=== PATIENT | female | born 1965 | race Caucasian/White ===

== ENCOUNTER → 2016-06-10 | Outpatient (CLI) | payer OTHER | END | disposition home or self-care (01) | LOC: C.PAPS 15:38 | PROVIDERS: ATTEND Obstetrics & Gynecology | DX: D25.9 Leiomyoma of uterus, unspecified (principal); Z12.4 Encounter for screening for malignant neoplasm of cervix ==

== ENCOUNTER → 2016-09-22 | Outpatient (CLI) | payer OTHER | END | disposition home or self-care (01) | LOC: C.LABSPEC 17:38 | PROVIDERS: ATTEND Nurse Practitioner Adult Health | DX: N39.3 Stress incontinence (female) (male) (principal) ==

== ENCOUNTER → 2017-01-28 | Outpatient (CLI) | payer OTHER ==
--- NOTE | 2017-01-28 15:37 | MAMMOGRAPHY REPORT ---
BILATERAL DIGITAL SCREENING MAMMOGRAM TOMOSYNTHESIS WITH CAD: 01/28/2017 CLINICAL HISTORY: Routine screening. Patient has no complaints. TECHNIQUE: Breast tomosynthesis in addition to standard 2D mammography was performed. Current study was also evaluated with a Computer Aided Detection (CAD) system. COMPARISON: Comparison is made to exams dated: 01/27/2016 mammogram, 01/21/2015 mammogram, 08/15/2013 mammogram, 08/14/2012 mammogram, 04/30/2011 mammogram, and 04/29/2010 mammogram - [facility] enter. BREAST COMPOSITION: The tissue of both breasts is heterogeneously dense, which may obscure small mas ses. FINDINGS: No suspicious masses, calcifications, or areas of architectural distortion are noted in ei ther breast. There has been no significant interval change compared to prior exams. IMPRESSION: ACR BI-RADS CATEGORY 1: NEGATIVE There is no mammographic evidence of malignancy. A 1 year screening mammogram is recommended. Given the strong family history of breast cancer, consider annual screening bilateral breast MRI in additio n to annual mammography, if the patient's lifetime risk is greater than 20%. The patient will receive written notification of the results. Approximately 10% of breast cancers are not detected with mammography. A negative mammographic report should not delay biopsy if a clinically suggestive mass is present. Frannie Morelos M.D. /:01/28/2017 08:00:16 Workers Compensation Claims Assistant: Ruth ROE)(Patti)(BD), [facility] letter sent: Normal 1/2 BI-RADS Code: ACR BI-RADS Category 1: Negative
== END | disposition home or self-care (01) ==
LOC: C.MAMM 07:38
PROVIDERS: ATTEND Obstetrics & Gynecology
DX: Z12.31 Encounter for screening mammogram for malignant neoplasm of breast (principal); Z80.3 Family history of malignant neoplasm of breast

== ENCOUNTER → 2017-05-20 | Outpatient (CLI) | payer OTHER ==
[~2017-05-20] MED LIST: JUICE PLUS PO; MULT-506 PO
[2017-05-20 13:10] LABS: BASO % 0.3 %; BASO ABS # 0.02 K/uL (0-0.2); EOS % 1.7 %; HEMATOCRIT 41.6 % (37-47); HEMOGLOBIN 14.2 g/dL (12.0-16.0); IG# 0.02 K/uL (0.00-0.02); LYMPH % 32.1 %; LYMPH ABS # 1.94 K/uL (1.2-3.4); MEAN CELL VOLUME 89.3 fL (80-100); MEAN CORPUSCULAR HEMOGLOBIN 30.5 pg (25-34); MEAN CORPUSCULAR HGB CONC 34.1 g/dl (32-36); MEAN PLATELET VOLUME 10.7 fL (7.4-10.4); MONO % 6.1 %; MONO ABS # 0.37 K/uL (0.11-0.59); NEUT % 59.5 %; PLATELET COUNT 212 K/uL (130-400); RED CELL DISTRIBUTION WIDTH CV 12.4 % (11.5-14.5); WHITE BLOOD COUNT 6.05 K/uL (4.8-10.8)
[2017-05-20 14:32] LABS: BLOOD UREA NITROGEN 13 mg/dl (7-18); CALCIUM 9.2 mg/dl (8.5-10.1); CARBON DIOXIDE 28 mmol/L (21-32); CREATININE 0.64 mg/dl (0.60-1.20); GLUCOSE 129 mg/dl (70-99); POTASSIUM 3.7 mmol/L (3.5-5.1); SODIUM 137 mmol/L (136-145)
== END | disposition home or self-care (01) ==
LOC: C.CPL 12:32
PROVIDERS: ATTEND Orthopaedic Surgery
DX: Z01.818 Encounter for other preprocedural examination (principal); S83.232A Complex tear of medial meniscus, current injury, left knee, initial encounter; X58.XXXA Exposure to other specified factors, initial encounter

== ENCOUNTER → 2017-05-26 | Day surgery (SDC) | payer OTHER ==
[2017-05-24 08:06] VITALS: Ht 172.7 cm; Wt 79.5 kg
[~2017-05-26] VITALS: Ht 172.7 cm; Wt 79.5 kg
[~2017-05-26] MED LIST changes: +ATROPINE SULFATE 0.1 MG/ML 5ML SYR IV PRN; +CEFAZOLIN 2000MG IV PUSH 15 ML IV SCH; +EpHEDrine SULFATE INJ 50 MG/ML AMP IV PRN; +EpINEphrine INJ 1MG/ML AMP 1 MG/ML AMP ONE; +FENTANYL CITRATE INJ 50 MCG/1 ML 2 ML VIAL IV PRN; +FENTANYL CITRATE INJ 50 MCG/1 ML 2 ML VIAL ONE; +HYDR-5688 PO; +HYDROCODONE/ACETAMIN 5/325MG TAB ONE; +HYDROCODONE/ACETAMIN 5/325MG TAB PO PRN; +KETOROLAC TROMETHAMINE 30 MG/ML VIAL ONE; +LACTATED RINGER'S 1000ML 1,000 ML IV SCH; +LIDOCAINE HCL 2% 2 ML VIAL (20MG/ML) ONE; +MIDAZOLAM HCL 1 MG/ML 2ML VIAL ONE; +ONDANSETRON INJ 2 MG/ML 2 ML VIAL IV PRN; +ONDANSETRON INJ 2 MG/ML 2 ML VIAL ONE; +PATIENT'S HEIGHT AND/OR WEIGHT NEEDED SCH; +PROPOFOL IV EMULSION 10 MG/ML 20 ML VIAL IV ONE; +ROPIVACAINE 0.5% 5 MG/ML 30 ML VIAL ONE; +SODIUM CHLORIDE 0.9% 1000ML 1,000 ML IV SCH
--- NOTE | 2017-05-26 06:44 | History & Physical Bridge - SC ---
H&P Re-Evaluation Bridge Note: I have examined the patient, reviewed the History & Physical and in the interval since the performance of the History & Physical I have noted the following changes of clinical significance: No changes noted
--- NOTE | 2017-05-26 08:27 | Discharge Instructions-SurgCtr ---
Discharge Instructions Date of Service May 26, 2017. Visit Reason for Visit: Left Knee Medial Meniscus Tear Discharge Discharge Diagnosis / Problem: SAME ABOVE Discharge Goals Goal(s): Decrease discomfort, Improve function Activity Recommendations Activity Limitations: as noted below Lifting Limitations: gradually increase as tolerated Exercise/Sports Limitations: gradually increase as tolerated Shower/Bathe: tomorrow Weightbearing Status: Left weightbearing (as tolerated) Anesthesia . Post Anesthesia Instructions: If you have had General Anesthesia or IV Sedation: * Do not drive today. * Resume driving when surgeon permits. * Do not make important decisions or sign legal documents today. * Call surgeon for: 1. Temperature elevations greater than 101 degrees F. 2. Uncontrollable pain. 3. Excessive bleeding. 4. Persistent nausea and vomiting. 5. Medication intolerance (nausea, vomiting or rash). * For nausea and vomiting use only clear liquids such as: tea, soda, bouillon until nausea subsides, then gradually increase diet as tolerated. * If you have any concerns or questions, call your surgeon's office. If physician is unavailable and it is an emergency, call 911 or go to the nearest emergency room. . Instructions / Follow-Up Instructions / Follow-Up MEDICATIONS: * Resume previous medications unless instructed otherwise by your surgeon. * Always take pain medication on a full stomach or with food to avoid upset stomach. * Do not drink alcohol or drive while taking narcotics. * Ibuprofen or Tylenol may be taken if narcotic not needed. SPECIAL CARE INSTRUCTIONS: __ None _X_ Keep extremity elevated and iced x 48 hours; apply ice 20-30 minutes 8-10 times/day. May remove at night. _X_ Crutches _X_ May discard when able __ Brace/Post-op shoe __ 24 hrs/day __ Remove at night _X_ Dressing __ Maintain until seen in office, may shower with plastic over site _X_ Remove dressings in 24-48 hours and then may shower _X_ Cover incisions with band-aids after showering __ Do not remove steri-strips Call physician if chills or temperature rises above 102 degrees or pain unrelieved by prescribed pain medications. Office [phone] Diet Recommendations Home Diet: no limitations Fluid Restriction: None Procedures Procedures Performed: Left Knee Arthroscopy, Partial Medial Meniscectomy,Chondroplasty and removal of plica Pending Studies Studies pending at discharge: no Work Instructions Return To Work: 1 week Medical Emergencies . Who to Call and When: Medical Emergencies: If at any time you feel your situation is an emergency, please call 911 immediately. . Non-Emergent Contact Non-Emergency issues call your: Primary Care Provider, Hospital Doctor Call Non-Emergent contact if: you have a fever, temperature is above 101.5 . . "Provider Documentation" section prepared by Alcides Duran. .
--- NOTE | 2017-05-26 08:30 | [facility] Post Operative Brief Note ---
Immediate Operative Summary Operative Date May 26, 2017. Pre-Operative Diagnosis Left knee medial meniscus tear Post-Operative Diagnosis Same as pre-op Procedure(s) Performed Left Knee Arthroscopy, Partial Medial Meniscectomy,Chondroplasty and removal of plica Surgeon Inside Sales Consultant Surgeon(s) Amrit FAJARDO Estimated Blood Loss 5ML Findings Consistent with Post-Op Diagnosis Specimens None Anesthesia Type General Complication(s) none Disposition Disposition: Recovery Room / PACU
--- NOTE | 2017-05-26 09:02 | Anesthesia Progress Nt - [facility] ---
Anesthesia Post Op Note Date & Time May 26, 2017 at 09:01 Vital Signs Pain Intensity: 0 Vital Signs Past 12 Hours Date Time Temp Pulse Resp B/P (MAP) Pulse Ox O2 Delivery O2 Flow Rate FiO2 05/26/17 08:52 64 17 97 05/26/17 08:52 65 17 05/26/17 08:51 142/73 05/26/17 08:50 37.1 75 17 142/73 95 Room Air 05/26/17 08:47 78 16 05/26/17 08:47 78 16 98/84 99 05/26/17 08:42 74 14 97 05/26/17 08:42 75 14 05/26/17 08:41 147/81 05/26/17 08:37 68 14 05/26/17 08:37 70 14 100 05/26/17 08:36 130/79 05/26/17 08:32 70 13 05/26/17 08:32 67 13 100 05/26/17 08:31 136/88 05/26/17 08:27 77 140/104 97 05/26/17 08:27 77 05/26/17 08:27 37.0 78 12 140/104 98 Mask 6 05/26/17 06:37 36.8 76 16 127/76 (93) 95 Room Air Notes Mental Status: alert / awake / arousable, participated in evaluation Pt Amnestic to Procedure: Yes Nausea / Vomiting: adequately controlled Pain: adequately controlled Airway Patency, RR, SpO2: stable & adequate BP & HR: stable & adequate Hydration State: stable & adequate Anesthetic Complications: no major complications apparent
[2017-05-26 09:10] VITALS: TEMP 37.1
[2017-05-26 09:50] VITALS: BP 126/75; PULSE 74; O2SAT 98
--- NOTE | 2017-05-26 15:31 | OPERATIVE REPORT ---
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 POSTOPERATIVE DIAGNOSIS: Same. PROCEDURE: Left knee diagnostic arthroscopy with limited synovectomy including plica excision, chondroplasty and partial medial meniscectomy. SURGEON: Dr. Sarbjit Mai. NAPHTHALENE OPERATOR HELPER: Bud Duran PA-C, whose assistance was necessary for positioning the knee and helping with instrumentation. ANESTHESIA: General. COMPLICATIONS: None. CONDITION: Stable to PACU. INDICATIONS: Nicole is a pleasant 52-year-old female who presented to my office with a 6-month history of left knee pain. She denies any trauma. MRI and clinical examination were diagnostic for a complex medial meniscus tear and chondromalacia and possible plica. After failing conservative treatment, she elected to undergo arthroscopy. OPERATION AND FINDINGS: On May 26, she arrived at [facility] for the above procedure. She was seen in the preoperative holding area and the operative extremity was identified and signed. She was given a preoperative antibiotic, taken back to the operating room, laid on the table in supine position and put under general anesthesia. The left knee was then prepped and draped in sterile fashion. Time-out was done. The patient and the operative extremity were properly identified. A scope was introduced in the lateral parapatellar portal. Diagnostic arthroscopy showed grade 2 chondromalacia within the trochlea and the undersurface of the patella. There were no loose bodies in suprapatellar pouch. There was a very large medial-sided plica that was rubbing on the medial condyle. The scope was then brought in the medial compartment. There was a small area of grade 2 chondral changes on the very medial aspect of the medial condyle. There was a complex tear of the medial meniscus. A medial parapatellar portal was made under direct visualization. A shaver and a biter were used to remove the unstable portions of the meniscus and get the meniscus back to stable margins. A minimal chondroplasty was done on the distal medial femoral condyle. The scope was brought into the trochlea. ACL and PCL were intact. The scope was brought in the lateral compartment. There was no cartilage or meniscus damage laterally. The knee was brought into full extension. A shaver was used to do a limited synovectomy including complete excision of the plica. A shaver was also used to complete a chondroplasty of the patellofemoral joint. The scope was then brought into the medial parapatellar portal. Repeat diagnostic arthroscopy showed no additional pathology. Arthroscopic instruments were removed from the knee. Portal sites were closed with 3-0 nylon. The knee was then injected with 30 mL of ropivacaine with morphine and Toradol. She was then placed in a soft compressive dressing, extubated, transferred to a litter and taken to the postanesthesia care unit in stable condition. She tolerated the procedure well. I attest to the content of the Intraoperative Record and any orders documented therein. Any exception s are noted below.
== END | disposition home or self-care (01) ==
LOC: X.SURG 06:23
PROVIDERS: ATTEND Orthopaedic Surgery
DX: M23.232 Derangement of other medial meniscus due to old tear or injury, left knee (principal); M94.262 Chondromalacia, left knee; M67.52 Plica syndrome, left knee; Z87.891 Personal history of nicotine dependence; Z82.49 Family history of ischemic heart disease and other diseases of the circulatory system; Z82.3 Family history of stroke; Z80.3 Family history of malignant neoplasm of breast

== ENCOUNTER → 2017-06-28 | Outpatient (CLI) | payer OTHER ==
[~2017-06-28] MED LIST changes: -ATROPINE SULFATE 0.1 MG/ML 5ML SYR IV PRN; -CEFAZOLIN 2000MG IV PUSH 15 ML IV SCH; -EpHEDrine SULFATE INJ 50 MG/ML AMP IV PRN; -EpINEphrine INJ 1MG/ML AMP 1 MG/ML AMP ONE; -FENTANYL CITRATE INJ 50 MCG/1 ML 2 ML VIAL IV PRN; -FENTANYL CITRATE INJ 50 MCG/1 ML 2 ML VIAL ONE; -HYDROCODONE/ACETAMIN 5/325MG TAB ONE; -HYDROCODONE/ACETAMIN 5/325MG TAB PO PRN; -KETOROLAC TROMETHAMINE 30 MG/ML VIAL ONE; -LACTATED RINGER'S 1000ML 1,000 ML IV SCH; -LIDOCAINE HCL 2% 2 ML VIAL (20MG/ML) ONE; -MIDAZOLAM HCL 1 MG/ML 2ML VIAL ONE; -ONDANSETRON INJ 2 MG/ML 2 ML VIAL IV PRN; -ONDANSETRON INJ 2 MG/ML 2 ML VIAL ONE; -PATIENT'S HEIGHT AND/OR WEIGHT NEEDED SCH; -PROPOFOL IV EMULSION 10 MG/ML 20 ML VIAL IV ONE; -ROPIVACAINE 0.5% 5 MG/ML 30 ML VIAL ONE; -SODIUM CHLORIDE 0.9% 1000ML 1,000 ML IV SCH
== END | disposition home or self-care (01) ==
LOC: C.PAPS 16:11
PROVIDERS: ATTEND Obstetrics & Gynecology
DX: Z12.4 Encounter for screening for malignant neoplasm of cervix (principal); N95.2 Postmenopausal atrophic vaginitis

== ENCOUNTER → 2017-07-26 | Outpatient (CLI) | payer OTHER ==
[~2017-07-26] MED LIST changes: +GADAVIST IV PRN
--- NOTE | 2017-07-27 15:25 | MAMMOGRAPHY REPORT ---
BREAST MRI OF BOTH BREASTS : 07/26/2017 CLINICAL HISTORY: 52-year-old woman with a strong family history of breast cancer and heterogeneously dense breasts presents for additional screening. COMPARISON: Prior breast MRIs dated 08/07/2014, 11/09/2011, 07/09/2008, 11/20/2007, 03/30/2007. Prior mamm ograms dated 12/20/2006, 03/19/2009, 04/30/2011, 08/14/2012, 08/15/2013, 01/21/2015, 01/27/2016, 01/28/2017. TECHNIQUE: Using a 1.5 Rema magnet and dedicated breast coil, multisequence axial images were obtain ed through the breasts. After uneventful IV administration of 8 mL of Gadavist, dynamic multiphase c ontrast-enhanced axial images, and sagittal postcontrast were obtained. Temporal subtraction axial i mages and 3-D MIP images are provided. Everything was then reviewed on a 3-D workstation, [employer]. FINDINGS: Right breast: There is mild background parenchymal enhancement with numerous scattered round and oval enhancing foci in the right breast. There is no dominant suspicious enhancing mass, non-mass enhanc ement, suspicious kinetics or architectural distortion identified. No focal skin thickening or nippl e retraction. No suspicious right axillary lymphadenopathy. Left breast: There is mild background parenchymal enhancement, with numerous scattered round and oval enhancing foci in the left breast. There is focal nodular enhancement within the left nipple measur ing 6.6 mm (axial page 56/124), that is asymmetric comparing to the right nipple, and demonstrates mi xed washout and plateau kinetics. Although the appearance is somewhat similar to the 2014 MRI, there was no definite abnormal enhancement seen in the left nipple on the 2011, 2008 or 2007 breast MRIs. Differential considerations include: A nipple adenoma, papilloma, physiologic inverted nipple and Pa get's disease of the nipple. Surgical consultation for nipple biopsy is recommended. There is no ot her suspicious enhancing mass, non-mass enhancement, suspicious kinetics or architectural distortion in the left breast. No suspicious left axillary lymphadenopathy. IMPRESSION: ACR BI-RADS CATEGORY 4: SUSPICIOUS 1. Asymmetric 6.6 mm focal nodular enhancement within the left nipple that is indeterminate. It is doubtful that targeted second look ultrasound would be useful and therefore surgical consultation for a surgical nipple biopsy is recommended to exclude the possibility of Paget's disease of the nipple. 2. No other suspicious enhancing masses or non-mass enhancement seen in the left breast. 3. No MRI evidence of malignancy in the right breast. Crystal Tyson M.D. ay/:07/26/2017 21:31:02 Mussel Opener: vibrator operator, [facility] letter sent: Abnormal 4/5 BI-RADS Code: ACR BI-RADS Category 4: Suspicious
== END | disposition home or self-care (01) ==
LOC: C.MRI 07:07
PROVIDERS: ATTEND Physician Assistant Surgical
DX: R92.2 Inconclusive mammogram (principal); Z80.3 Family history of malignant neoplasm of breast; Z91.89 Other specified personal risk factors, not elsewhere classified